=== PATIENT | female | born 1990 | race Caucasian/White ===

== ENCOUNTER → 2023-09-19 | Outpatient (REF) | payer OTHER, SELFPAY | LOC: DHSLP | PROVIDERS: ATTENDING PHYSICIAN Family Medicine | DX: G47.19 Other hypersomnia (principal); R06.83 Snoring | CPT/HCPCS: 95800 ==

== ENCOUNTER 2024-05-24 06:22 | Day surgery (SDC) | payer OTHER, SELFPAY ==
[2024-05-24] VITALS (8 sets, daily range): BP systolic 116–141; BP diastolic 73–97
[2024-05-24] MEDS: NORMOSOL-R/PLASMALYTE-A 1000 IV (08:52)
[2024-05-24] MEDS: TYLENOL 1000 MG PO (08:52)
--- NOTE | 2024-05-24 09:35 | W.SUR.PREOP ---
Pre-Operative Surgical Note
-
I have examined this patient prior to the performance of the scheduled procedure.
The patient's condition is unchanged from the time of the current History and
Physical and the patient is able to undergo the scheduled procedure.
--- NOTE | 2024-05-24 11:25 | W.IMMPOSTOP ---
Surgical Immed Post Op Note
-
Primary Surgeon: Foreign Acuña MD
Assisting Surgeon: None
Pre-op Diagnosis: Biliary colic
Post-op Diagnosis: Same
Procedure Performed: Laparoscopic cholecystectomy with cholangiogram
Anesthesia Type: General
Specimen / Cultures: Gallbladder and contents
Estimated Blood Loss: 3 cc
Complications: None
Operative Findings: Veress needle entry followed by a 5 mm Optiview trocar entry. Fairly normal-appearing gallbladder. Critical view of safety obtained prior to a cholangiogram which demonstrated no distal filling defects and normal biliary
anatomy. Prior to cannulation of the duct 3 yellow cholesterol gallstones were milked out of the duct along with some sludge. The duct was ligated with a clip followed by a 0 PDS Endoloop. The cystic artery was quite diminutive but there was a
more robust posterior cystic artery that was taken at high gallbladder fossa. There was minima spillage of bile and no stones.
--- NOTE | 2024-05-24 11:28 | OR.RPT ---
Operative Report
Operative Report
Patient Name: Priya Hernandes
: 1990
Date of Operation: 05/24/2024
Preoperative Diagnosis: Symptomatic Cholelithiasis
Postoperative Diagnosis: Same
Procedure(s):
Laparoscopic Cholecystectomy with Cholangiogram
Surgeon(s):
Dr. Acuña
Director [employer](s):
BHARTI Abreu
Anesthesia: General
Estimated Blood Loss: 3 cc
Urine Output: None
Drains/Lines/Implants: None
Specimens:
1. Gallbladder and contents
HPI/Surgical Indications:
This is a 34year old female who presents with abdominal pain. Exam, labs and imaging are consistent with symptomatic cholelithiasis. Risks/Benefits/Alternatives were discussed at length, and the patient agreed to proceed with surgery.
Operative Findings: Veress needle entry followed by a 5 mm Optiview trocar entry. Fairly normal-appearing gallbladder. Critical view of safety obtained prior to a cholangiogram which demonstrated no distal filling defects and normal biliary
anatomy. Prior to cannulation of the duct 3 yellow cholesterol gallstones were milked out of the duct along with some sludge. The duct was ligated with a clip followed by a 0 PDS Endoloop. The cystic artery was quite diminutive but there was a
more robust posterior cystic artery that was taken at high gallbladder fossa. There was minima spillage of bile and no stones.
Procedure Description:
The patient was brought to the Operating Room and placed in the supine position. IV antibiotics were infused and sequential compression devices were confirmed to be on. Following uneventful induction of general endotracheal anesthesia, an
orogastric tube was placed. The abdomen was prepped and draped in the usual sterile fashion. The abdomen was entered using a left subcostal Veress technique which required a single pass followed by a 5 mm right upper quadrant Optiview trochar.
Pneumoperitoneum to 15 mmHg pressure was obtained without difficulty and we confirmed that no injury had occurred during our entry. The patient was positioned in reverse trendelenberg and rotated with the right side up slightly. Two 5mm trocars were
then placed along the right subcostal margin, followed by a 12 mm port in the epigastrium. A locking grasping forceps was placed on the fundus of the gallbladder where it was then retracted cephalad and to the right. Using appropriate grasping
instruments, the peritoneum overlying the triangle of Calot was incised. The cystic duct/gallbladder junction was identified, dissected circumferentially. The cystic artery was identified medially and was dissected circumferentially. A critical
view was obtained. A clip was then placed on the cystic duct/gallbladder junction and an intraoperative cholangiogram performed using fluoroscopy, which showed good flow of dye into the duodenum. There were no intra- or extrahepatic bile duct
filling defects. The biliary anatomy appeared normal. Prior to the completion of the cholangiogram 3 small yellow cholesterol gallstones were milked out of the duct along with some sludge and removed. Following completion of the cholangiogram,
the catheter was removed. Two clips were then placed proximally on the cystic duct and the duct divided. Two clips were placed proximally and one distally on the cystic artery, and the artery was divided. Remaining soft tissue attachments of the
gallbladder to the liver bed were then divided using electrocautery. There was some spillage of bile, but no spillage of stones. The gallbladder bed was inspected and excellent hemostasis was obtained. The gallbladder was extracted through the 12
mm trocar site using an endocatch bag. The abdomen was again irrigated and excellent hemostasis was assured. All remaining trocars were then removed and the pneumoperitoneum was evacuated. The 12 mm trocar site was closed using a figure of 8 of 0
PDS. All trocar sites were closed at the skin level using 4-0 Monocryl followed by Dermabond. Overall, the patient tolerated the procedure well and was taken to the Recovery Room postoperatively in stable condition.
I was the attending physician and performed the procedure with assistance from the GLASS [employer] above. I was present for all portions of the case, excluding skin closure.
Foreign Acuña MD
[2024-05-24] MEDS: DILAUDID 0.5 MG IV (11:44)
== END 2024-05-24 13:17 | disposition home or self-care (01) ==
LOC: SDS 06:22
PROVIDERS: ATTENDING PHYSICIAN Surgery; FAMILY PHYSICIAN Nurse Practitioner Family
DX: K80.70 Calculus of gallbladder and bile duct without cholecystitis without obstruction (principal)
CPT/HCPCS: 47563; 88304; 74300; 76000